=== PATIENT | male | born 1925 | race Caucasian/White ===

== ENCOUNTER 2017-05-30 14:50 | Emergency (ER) | payer OTHER ==
--- OUTSIDE RECORDS SUMMARY | 2017-05-30 14:53 | XMS REPORT ---
:1925 [facility] Address [address] [place] [id number] Care Team Providers Name Role Phone DESIREE VAUGHAN Unavailable Unavailable Problems This patient has no known problems. Allergies, Adverse Reactions, Alerts This patient has no known allergies or adverse reactions. Medications This patient has no known medications. Results Test Description Test Time Test Comments Text Results Atomic Results Result Comments ROSA SOUSA, 2017-05-26 What level(s) should be FINAL REPORT PATIENT LUMBAR, INITIAL 21:29:00 performed->[id number] for ID: [id number] exam:->mod to high grade HISTORY: L3 compression fx L3 vertebral wedged compression fracture and severe lower back pain despite conservative therapy. PROCEDURE: Following informed written consent, general anesthesia was performed by the anesthesiology service and the patient was placed in a prone position on the angiographic table. The lower back was prepped and draped in the usual sterile manner. 2% lidocaine was given locally for anesthesia. Using a right L3 pedicular approach and fluoroscopic guidance, the access needle was placed into the L3 vertebral body. A tract was drilled through each cannula into the L3 vertebral body. Vertebral augmentation balloon was placed through the access cannula and inflated. The balloon was deflated and removed. Next a curved needle was placed through the access needle into created channel to the contralateral side. A total of 6 mL of methyl methacrylate was infused into the three vertebral body under constant fluoroscopic visualization. The cannula was then removed and the access sites closed with Steri-Strips. Sterile bandages were applied and the patient was transferred from the department in stable condition. There were no immediate complications. FINDINGS: Images obtained during the procedure show the access needle, cannula and 11 in expected positions within the three vertebral body. Following methacrylate infusion, adequate distribution is seen within the L3 vertebral body with minimal extravasation into the L3-L4 disc space. IMPRESSION: 1. Technically successful L3 percutaneous vertebral augmentation. No immediate complications. Total fluoroscopy time: 5.9 minsReference Air Kerma: 225 mGy Signed: Brian Hernandezeport Verified Date/Time: 05/26/2017 21:29:09 Reading Location: [facility] P048 Angio Body Reading Room ESIUM 2017-05-26 09:10:00 Test Item Value Reference Range Comments MAGNESIUM (BEAKER) (test jllb=149) 1.9 mg/dL 1.6-2.6 BASIC METABOLIC [id number] 09:10:00 Test Item Value Reference Range Comments SODIUM (BEAKER) (test 141 meq/L 136-145 kfrh=697) POTASSIUM (BEAKER) (test 4.1 meq/L 3.5-5.1 hawv=233) CHLORIDE (BEAKER) (test 107 meq/L 98-107 bprw=161) CO2 (BEAKER) (test 25 meq/L 22-29 lami=262) BLOOD UREA NITROGEN 49 mg/dL 7-21 (BEAKER) (test xchj=285) CREATININE (BEAKER) (test 1.36 mg/dL 0.57-1.25 ebes=094) GLUCOSE RANDOM (BEAKER) 114 mg/dL 70-105 (test fffj=942) CALCIUM (BEAKER) (test 9.3 mg/dL 8.4-10.2 bsmz=691) EGFR (BEAKER) (test 49 mL/min/1.73 sq m ESTIMATED GFR IS NOT ggsd=2660) ACCURATE CREATININE CLEARANCE IN PREDICTING GLOMERULAR FILTRATION RATE. ESTIMATED GFR IS NOT APPLICABLE FOR DIALYSIS PATIENTS. [id number] 06:12:00 Test Item Value Reference Range Comments PARTIAL THROMBOPLASTIN TIME (BEAKER) (test 29.2 seconds 22.5-36.0 ffkx=567) PROTHROMBIN TIME/[id number] 06:11:00 Test Item Value Reference Range Comments PROTIME (BEAKER) (test pggq=593) 14.2 seconds 11.7-14.7 INR (BEAKER) (test qbzi=791) 1.1 <=5.9 RECOMMENDED COUMADIN/WARFARIN INR THERAPY RANGESSTANDARD DOSE: 2.0 - 3.0 Includes: PROPHYLAXIS forvenous thrombosis, systemic embolization; TREATMENT for venous thrombosis and/or pulmonary embolus.HIGH RISK: Target INR is 2.5-3.5 for patients with mechanical heart valves.CBC W/PLT COUNT & AUTO [id number] 06:05:00 Test Item Value Reference Range Comments WHITE BLOOD CELL COUNT (BEAKER) (test puwi=398) 6.1 K/ L 3.5-10.5 RED BLOOD CELL COUNT (BEAKER) (test vkuv=874) 3.46 M/ L 4.63-6.08 HEMOGLOBIN (BEAKER) (test mmab=228) 11.0 GM/DL 13.7-17.5 HEMATOCRIT (BEAKER) (test hujq=446) 34.3 % 40.1-51.0 MEAN CORPUSCULAR VOLUME (BEAKER) (test beyv=860) 99.1 fL 79.0-92.2 MEAN CORPUSCULAR HEMOGLOBIN (BEAKER) (test 31.8 pg 25.7-32.2 tqvf=324) MEAN CORPUSCULAR HEMOGLOBIN CONC (BEAKER) (test 32.1 GM/DL 32.3-36.5 gsoh=305) RED CELL DISTRIBUTION WIDTH (BEAKER) (test 14.0 % 11.6-14.4 kvtb=693) PLATELET COUNT (BEAKER) (test avzi=887) 255 K/CU MM 150-450 MEAN PLATELET VOLUME (BEAKER) (test dqcf=978) 9.8 fL 9.4-12.4 NUCLEATED RED BLOOD CELLS (BEAKER) (test 0 /100 WBC 0-0 qymx=554) NEUTROPHILS RELATIVE PERCENT (BEAKER) (test 71 % dhby=256) LYMPHOCYTES RELATIVE PERCENT (BEAKER) (test 19 % iidn=898) MONOCYTES RELATIVE PERCENT (BEAKER) (test 8 % rtif=752) EOSINOPHILS RELATIVE PERCENT (BEAKER) (test 1 % frav=575) BASOPHILS RELATIVE PERCENT (BEAKER) (test 0 % kckq=480) NEUTROPHILS ABSOLUTE COUNT (BEAKER) (test 4.36 K/ L 1.78-5.38 pvco=374) LYMPHOCYTES ABSOLUTE COUNT (BEAKER) (test 1.18 K/ L 1.32-3.57 losi=131) MONOCYTES ABSOLUTE COUNT (BEAKER) (test 0.48 K/ L 0.30-0.82 gtys=117) EOSINOPHILS ABSOLUTE COUNT (BEAKER) (test 0.07 K/ L 0.04-0.54 caie=150) BASOPHILS ABSOLUTE COUNT (BEAKER) (test 0.01 K/ L 0.01-0.08 bhwi=871) IMMATURE GRANULOCYTES-RELATIVE PERCENT (BEAKER) 0 % 0-1 (test tnyn=4883) MR, SPINE, LUMBAR, WITHOUT [id number] 14:01:00FINAL REPORT MRI lumbar spine without contrast 05/25/2017 at 1223. CLINICAL HISTORY : Compression fracture. TECHNIQUE: MRI of the lumbar spine was performed, utilizing the following sequences: Sagittal T1, T2, STIR; axial T1 and T2. COMPARISON: CT lumbar spine 05/23/2017. FINDINGS:There is a recent on chronic L3 compression fracture resulting in 67% loss of vertebral body height and mild osseous retropulsion. The remaining vertebral bodies are intact. There is double curvature arcuate and rotatory scoliosis, apex left at L1-2 and apex right at L2-3. There is degeneration mediated shallow grade 1 anterolisthesis of L4 on L5, with compensatory degeneration mediated retrolisthesis of L1 on L2. There are Modic degenerative endplate changes and marrow edema in the inferior L1 andsuperior L2 vertebral body endplates. Bone marrow signal intensity is otherwise unremarkable. The conus medullaris terminates at the L1- 2 intervertebral disc. The distal spinal cord and terminal nerve roots are unremarkable. 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 At L5-S1, facet joint arthropathy contributes to mild right foraminal stenosis. There are bilateral facet joint effusions. At L4-5, anterolisthesis, dorsal disc bulge, facet joint arthropathy, and posterior ligamentous thickening contribute to moderate central canal stenosis, with mild right andmoderate left foraminal stenosis. There are bilateral facet joint effusions. At L3-4, osseous retropulsion, dorsal disc bulge, facet joint arthropathy, and posterior ligamentous thickening contribute to moderate bilateral foraminal stenosis, with moderate central canal stenosis. There are bilateral facet joint effusions. At L2-3, dorsal disc bulge, a superimposed left subarticular/foraminal disc protrusion, facet joint arthropathy, and posterior ligamentous thickening contribute to moderate central canal stenosis, with moderate bilateral foraminal stenosis. There are bilateral facet joint effusions. At L1-2, retrolisthesis, dorsal disc bulge and facet joint arthropathy contribute to mild central canal stenosis and moderate right foraminal stenosis. There is a 17 mm noncystic lesion in the superior right kidney. There are gallstones measuring up to 15 mm in diameter in the dependent gallbladder.There is colonic diverticulosis. The paraspinal musculature is intact. IMPRESSION:1. Chronic severe L3 compression fracture contribute to moderate central canal stenosis.2. Noncystic right renal lesion, for which further evaluation with CT versus MRI, renal mass protocol, is recommended.3. Additional chronic appearing findings as discussed. Signed: Albert Gonzalez MDReport Verified Date/Time: 05/25/2017 14:01:36 Reading Location: [facility] Radiology Reading Room [id number] 06:33:00 Test Item Value Reference Range Comments MAGNESIUM (BEAKER) (test nmuj=987) 1.8 mg/dL 1.6-2.6 BASIC METABOLIC [id number] 06:33:00 Test Item Value Reference Range Comments SODIUM (BEAKER) (test 142 meq/L 136-145 mtsi=878) POTASSIUM (BEAKER) (test 4.3 meq/L 3.5-5.1 bcwl=956) CHLORIDE (BEAKER) (test 107 meq/L 98-107 bptv=381) CO2 (BEAKER) (test 25 meq/L 22-29 xrvy=583) BLOOD UREA NITROGEN 52 mg/dL 7-21 (BEAKER) (test awov=156) CREATININE (BEAKER) (test 1.48 mg/dL 0.57-1.25 layv=550) GLUCOSE RANDOM (BEAKER) 100 mg/dL 70-105 (test kgws=445) CALCIUM (BEAKER) (test 9.5 mg/dL 8.4-10.2 tpui=101) EGFR (BEAKER) (test 45 mL/min/1.73 sq m ESTIMATED GFR IS NOT dxss=4616) ACCURATE CREATININE CLEARANCE IN PREDICTING GLOMERULAR FILTRATION RATE. ESTIMATED GFR IS NOT APPLICABLE FOR DIALYSIS PATIENTS. CBC W/PLT COUNT & AUTO [id number] 05:30:00 Test Item Value Reference Range Comments WHITE BLOOD CELL COUNT (BEAKER) (test nvlv=605) 7.1 K/ L 3.5-10.5 RED BLOOD CELL COUNT (BEAKER) (test kddq=947) 3.24 M/ L 4.63-6.08 HEMOGLOBIN (BEAKER) (test ogbv=823) 10.3 GM/DL 13.7-17.5 HEMATOCRIT (BEAKER) (test zbyd=117) 32.0 % 40.1-51.0 MEAN CORPUSCULAR VOLUME (BEAKER) (test jvzv=213) 98.8 fL 79.0-92.2 MEAN CORPUSCULAR HEMOGLOBIN (BEAKER) (test 31.8 pg 25.7-32.2 orri=844) MEAN CORPUSCULAR HEMOGLOBIN CONC (BEAKER) (test 32.2 GM/DL 32.3-36.5 vsxp=536) RED CELL DISTRIBUTION WIDTH (BEAKER) (test 14.0 % 11.6-14.4 igmd=413) PLATELET COUNT (BEAKER) (test xfyl=075) 235 K/CU MM 150-450 MEAN PLATELET VOLUME (BEAKER) (test dezk=145) 10.0 fL 9.4-12.4 NUCLEATED RED BLOOD CELLS (BEAKER) (test 0 /100 WBC 0-0 acta=248) NEUTROPHILS RELATIVE PERCENT (BEAKER) (test 72 % znta=634) LYMPHOCYTES RELATIVE PERCENT (BEAKER) (test 18 % fjmk=061) MONOCYTES RELATIVE PERCENT (BEAKER) (test 8 % nbmr=210) EOSINOPHILS RELATIVE PERCENT (BEAKER) (test 1 % spcb=048) BASOPHILS RELATIVE PERCENT (BEAKER) (test 0 % ccqp=334) NEUTROPHILS ABSOLUTE COUNT (BEAKER) (test 5.17 K/ L 1.78-5.38 tmqs=029) LYMPHOCYTES ABSOLUTE COUNT (BEAKER) (test 1.26 K/ L 1.32-3.57 lzcc=804) MONOCYTES ABSOLUTE COUNT (BEAKER) (test 0.59 K/ L 0.30-0.82 lbqd=200) EOSINOPHILS ABSOLUTE COUNT (BEAKER) (test 0.07 K/ L 0.04-0.54 qkpt=030) BASOPHILS ABSOLUTE COUNT (BEAKER) (test 0.02 K/ L 0.01-0.08 ochr=111) IMMATURE GRANULOCYTES-RELATIVE PERCENT (BEAKER) 0 % 0-1 (test cqti=9206) [id number] 04:46:00 Test Item Value Reference Range Comments MAGNESIUM (BEAKER) (test zwzh=401) 1.8 mg/dL 1.6-2.6 BASIC METABOLIC [id number] 04:46:00 Test Item Value Reference Range Comments SODIUM (BEAKER) (test 141 meq/L 136-145 ozgw=964) POTASSIUM (BEAKER) (test 4.8 meq/L 3.5-5.1 taus=826) CHLORIDE (BEAKER) (test 109 meq/L 98-107 dwyk=985) CO2 (BEAKER) (test 21 meq/L 22-29 rfmw=825) BLOOD UREA NITROGEN 50 mg/dL 7-21 (BEAKER) (test yjvp=579) CREATININE (BEAKER) (test 1.54 mg/dL 0.57-1.25 crad=575) GLUCOSE RANDOM (BEAKER) 122 mg/dL 70-105 (test oxzv=824) CALCIUM (BEAKER) (test 9.3 mg/dL 8.4-10.2 hvql=422) EGFR (BEAKER) (test 43 mL/min/1.73 sq m ESTIMATED GFR IS NOT peew=0518) ACCURATE CREATININE CLEARANCE IN PREDICTING GLOMERULAR FILTRATION RATE. ESTIMATED GFR IS NOT APPLICABLE FOR DIALYSIS PATIENTS. CBC W/PLT COUNT & AUTO [id number] 04:18:00 Test Item Value Reference Range Comments WHITE BLOOD CELL COUNT (BEAKER) (test sqca=196) 6.7 K/ L 3.5-10.5 RED BLOOD CELL COUNT (BEAKER) (test kthe=647) 3.22 M/ L 4.63-6.08 HEMOGLOBIN (BEAKER) (test absc=739) 10.5 GM/DL 13.7-17.5 HEMATOCRIT (BEAKER) (test xdyr=000) 31.8 % 40.1-51.0 MEAN CORPUSCULAR VOLUME (BEAKER) (test pldk=394) 98.8 fL 79.0-92.2 MEAN CORPUSCULAR HEMOGLOBIN (BEAKER) (test 32.6 pg 25.7-32.2 tcza=592) MEAN CORPUSCULAR HEMOGLOBIN CONC (BEAKER) (test 33.0 GM/DL 32.3-36.5 qzhd=787) RED CELL DISTRIBUTION WIDTH (BEAKER) (test 13.7 % 11.6-14.4 oqwh=010) PLATELET COUNT (BEAKER) (test fdam=385) 234 K/CU MM 150-450 MEAN PLATELET VOLUME (BEAKER) (test uxhy=197) 9.3 fL 9.4-12.4 NUCLEATED RED BLOOD CELLS (BEAKER) (test 0 /100 WBC 0-0 lqem=878) NEUTROPHILS RELATIVE PERCENT (BEAKER) (test 81 % vkgs=069) LYMPHOCYTES RELATIVE PERCENT (BEAKER) (test 12 % jnur=913) MONOCYTES RELATIVE PERCENT (BEAKER) (test 7 % oslj=145) EOSINOPHILS RELATIVE PERCENT (BEAKER) (test 0 % xlte=020) BASOPHILS RELATIVE PERCENT (BEAKER) (test 0 % cfii=986) NEUTROPHILS ABSOLUTE COUNT (BEAKER) (test 5.39 K/ L 1.78-5.38 bjcp=826) LYMPHOCYTES ABSOLUTE COUNT (BEAKER) (test 0.80 K/ L 1.32-3.57 wpud=801) MONOCYTES ABSOLUTE COUNT (BEAKER) (test 0.46 K/ L 0.30-0.82 lyfg=942) EOSINOPHILS ABSOLUTE COUNT (BEAKER) (test 0.00 K/ L 0.04-0.54 qgdk=703) BASOPHILS ABSOLUTE COUNT (BEAKER) (test 0.01 K/ L 0.01-0.08 rnmg=443) IMMATURE GRANULOCYTES-RELATIVE PERCENT (BEAKER) 0 % 0-1 (test clej=7904) COMPREHENSIVE METABOLIC [id number] 18:24:00 Test Item Value Reference Range Comments TOTAL PROTEIN (BEAKER) 7.7 gm/dL 6.0-8.3 (test evvq=649) ALBUMIN (BEAKER) (test 4.0 g/dL 3.5-5.0 lrvf=5973) ALKALINE PHOSPHATASE 110 U/L 40-150 (BEAKER) (test yupz=910) BILIRUBIN TOTAL (BEAKER) 0.4 mg/dL 0.2-1.2 (test pvip=259) SODIUM (BEAKER) (test 144 meq/L 136-145 ozee=807) POTASSIUM (BEAKER) (test 4.9 meq/L 3.5-5.1 jbtb=455) CHLORIDE (BEAKER) (test 107 meq/L 98-107 zfey=859) CO2 (BEAKER) (test 16 meq/L 22-29 fjpa=080) BLOOD UREA NITROGEN 44 mg/dL 7-21 (BEAKER) (test xzqe=219) CREATININE (BEAKER) (test 1.56 mg/dL 0.57-1.25 mfgw=132) GLUCOSE RANDOM (BEAKER) 154 mg/dL 70-105 (test sgxg=093) CALCIUM (BEAKER) (test 10.3 mg/dL 8.4-10.2 pdwp=676) AST (SGOT) (BEAKER) (test 30 U/L 5-34 pxss=498) ALT (SGPT) (BEAKER) (test 17 U/L 6-55 lqfr=830) EGFR (BEAKER) (test 42 mL/min/1.73 sq m ESTIMATED GFR IS NOT ebpi=4891) ACCURATE CREATININE CLEARANCE IN PREDICTING GLOMERULAR FILTRATION RATE. ESTIMATED GFR IS NOT APPLICABLE FOR DIALYSIS PATIENTS. CBC W/PLT COUNT & AUTO [id number] 18:04:00 Test Item Value Reference Range Comments WHITE BLOOD CELL COUNT (BEAKER) (test fozj=148) 6.8 K/ L 3.5-10.5 RED BLOOD CELL COUNT (BEAKER) (test rusg=361) 3.72 M/ L 4.63-6.08 HEMOGLOBIN (BEAKER) (test zyvq=799) 12.0 GM/DL 13.7-17.5 HEMATOCRIT (BEAKER) (test fkuh=872) 37.8 % 40.1-51.0 MEAN CORPUSCULAR VOLUME (BEAKER) (test mxeh=587) 101.6 fL 79.0-92.2 MEAN CORPUSCULAR HEMOGLOBIN (BEAKER) (test 32.3 pg 25.7-32.2 tppo=327) MEAN CORPUSCULAR HEMOGLOBIN CONC (BEAKER) (test 31.7 GM/DL 32.3-36.5 jieo=698) RED CELL DISTRIBUTION WIDTH (BEAKER) (test 13.8 % 11.6-14.4 jnyd=666) PLATELET COUNT (BEAKER) (test jmvx=228) 222 K/CU MM 150-450 MEAN PLATELET VOLUME (BEAKER) (test usks=524) 9.5 fL 9.4-12.4 NUCLEATED RED BLOOD CELLS (BEAKER) (test 0 /100 WBC 0-0 emwu=043) NEUTROPHILS RELATIVE PERCENT (BEAKER) (test 93 % vlgv=508) LYMPHOCYTES RELATIVE PERCENT (BEAKER) (test 6 % tkkz=284) MONOCYTES RELATIVE PERCENT (BEAKER) (test 1 % tdfh=642) EOSINOPHILS RELATIVE PERCENT (BEAKER) (test 0 % njws=882) BASOPHILS RELATIVE PERCENT (BEAKER) (test 0 % pnny=341) NEUTROPHILS ABSOLUTE COUNT (BEAKER) (test 6.33 K/ L 1.78-5.38 qlhi=790) LYMPHOCYTES ABSOLUTE COUNT (BEAKER) (test 0.38 K/ L 1.32-3.57 cchf=544) MONOCYTES ABSOLUTE COUNT (BEAKER) (test 0.08 K/ L 0.30-0.82 mhsx=120) EOSINOPHILS ABSOLUTE COUNT (BEAKER) (test 0.00 K/ L 0.04-0.54 dwxq=219) BASOPHILS ABSOLUTE COUNT (BEAKER) (test 0.01 K/ L 0.01-0.08 ketj=579) IMMATURE GRANULOCYTES-RELATIVE PERCENT (BEAKER) 0 % 0-1 (test qvbo=0178)
--- NOTE | 2017-05-30 16:44 | ER ---
Nurse's Notes [facility] Name: Donald Tom Age: 89 yrs Sex: Male : 1925 Arrival Date: 05/30/2017 Time: 14:55 Bed 19 Private MD: Diagnosis: Constipation Presentation: 05/30 15:07 Presenting complaint: Patient states: Left sided abdominal pain and constipation x 1 hb week. Had back surgery last , hernia repair 3 weeks ago. Transition of care: patient was not received from another setting of care. Onset of symptoms is unknown. Care prior to arrival: None. 15:07 Method Of Arrival: Wheelchair hb 15:07 Acuity: MARIANELA 3 hb Historical: - Allergies: 15:10 Levaquin; hb - Home Meds: 15:10 lisinopril 10 mg Oral tab 1 tab once daily [Active]; hb 15:15 amlodipine oral [Active]; atorvastatin oral oral [Active]; Sulfamylon Topical [Active]; rb1 cholecalciferol (vitamin D3) oral oral [Active]; Omeprazole Oral [Active]; bimatoprost ophthalmic ophthalmic [Active]; - PMHx: 15:10 Hypertension; CKD; hb - PSHx: 15:10 Hernia repair; Back; hb - Immunization history:: Adult Immunizations up to date. - Social history:: Smoking status: Patient/guardian denies using tobacco. Screenin:15 Abuse screen: Denies threats or abuse. Nutritional screening: No deficits noted. rb1 Tuberculosis screening: No symptoms or risk factors identified. Fall Risk None identified. Assessment: 15:15 General: Appears in no apparent distress. comfortable, slender, Behavior is calm, rb1 cooperative, Denies fever. Pain: Complains of pain in left low back Pain currently is 6 out of 10 on a pain scale. Neuro: Level of Consciousness is awake, alert, obeys commands, Oriented to person, place, time, situation. Cardiovascular: Capillary refill < 3 seconds is brisk in bilateral fingers. Respiratory: Airway is patent Respiratory effort is even, unlabored, Respiratory pattern is regular, symmetrical. GI: Abdomen is flat, Bowel sounds present X 4 quads. Abd is non tender Reports constipation. : No signs and/or symptoms were reported regarding the genitourinary system. Derm: Skin is pink, warm \\T\\ dry. Musculoskeletal: Range of motion: intact in all extremities. 15:15 General: pt. stated, "I came in last week for pain and found out that I had a rb1 compression fracture. I had that repaired on , they injected cement in it. I have been taking Tylenol 3 and I haven't been able to go to the bathroom for about a week.". 15:58 Reassessment: pt. is in x-ray. rb1 16:22 Reassessment: Patient appears in no apparent distress at this time. Patient and/or rb1 family updated on plan of care and expected duration. Pain level reassessed. Patient is alert, oriented x 3, equal unlabored respirations, skin warm/dry/pink. Vital Signs: 15:10 BP 97 / 60; Pulse 110; Resp 18; Temp 97.1; Pulse Ox 94% on R/A; Weight 54.43 kg; Height hb 5 ft. 7 in. (170.18 cm); Pain 5/10; 15:59 rb1 16:22 BP 121 / 63; Pulse 106; Resp 17; Pulse Ox 99% on R/A; rb1 17:00 BP 146 / 69; Pulse 95; Resp 19; Pulse Ox 98% on R/A; rb1 15:10 Body Mass Index 18.79 (54.43 kg, 170.18 cm) hb 15:59 [facility] Course: 14:55 Patient arrived in ED. mr 15:09 Triage completed. hb 15:10 Arm band placed on left wrist. hb 15:11 Ravindra Castillo PA is PHCP. jr8 15:11 Herbie Huang MD is Attending Physician. jr8 15:15 Patient has correct armband on for positive identification. Bed in low position. Call rb1 light in reach. Side rails up X 1. Pulse ox on. NIBP on. 15:21 Melissa Quintana, JULIETA is Primary Nurse. rb1 16:43 Joe Gutierres MD is Referral Physician. jr8 17:00 No provider procedures requiring assistance completed. Patient did not have IV access rb1 during this emergency room visit. Administered Medications: No medications were administered Outcome: 16:44 Discharge ordered by . [facility] 17:00 Discharged to home via wheelchair, with family. rb1 17:00 Condition: stable 17:00 Discharge instructions given to patient, Instructed on discharge instructions, follow up and referral plans. medication usage, Demonstrated understanding of instructions, follow-up care, medications, Prescriptions given X 1. 17:00 Patient left the ED. rb1 Signatures: Rodney Nayla iRvaskarlywilfridRavindra PA PA jr8 Melissa Quintana, RN RN rb1 Neeta Vickers RN RN hb Corrections: (The following items were deleted from the chart) 17:08 17:07 BP 146 / 69; Pulse 95bpm; Resp 19bpm; Pulse Ox 98% RA; rb1 rb1 17:10 17:09 Patient left the ED. rb1 rb1
--- NOTE | 2017-05-30 16:44 | EDPHYS ---
Physician Documentation [facility] Name: Donald Tom Age: 89 yrs Sex: Male : 1925 Arrival Date: 05/30/2017 Time: 14:55 Bed 19 Private MD: ED Physician Herbie Huang HPI: 05/30 15:31 This 89 yrs old Male presents to ER via Wheelchair with complaints of jr8 Constipation. 15:31 The patient presents with constipation . Onset: The symptoms/episode began/occurred jr8 gradually, 1 week(s) ago. The symptoms do not radiate. Associated signs and symptoms: none. Modifying factors: The symptoms are alleviated by nothing, the symptoms are aggravated by nothing. The patient has not experienced similar symptoms in the past. The patient has been recently seen by a physician:. . 16:11 Patient stated that he had undergone a kyphoplasty last week. Has been on pain medicine jr8 since then. Stated that he has not had a bowel movement in one week. Denies abdominal pain. Complains of continued on/off back pain as well . Historical: - Allergies: 15:10 Levaquin; hb - Home Meds: 15:10 lisinopril 10 mg Oral tab 1 tab once daily [Active]; hb 15:15 amlodipine oral [Active]; atorvastatin oral oral [Active]; Sulfamylon Topical [Active]; rb1 cholecalciferol (vitamin D3) oral oral [Active]; Omeprazole Oral [Active]; bimatoprost ophthalmic ophthalmic [Active]; - PMHx: 15:10 Hypertension; CKD; hb - PSHx: 15:10 Hernia repair; Back; hb - Immunization history:: Adult Immunizations up to date. - Social history:: Smoking status: Patient/guardian denies using tobacco. ROS: 16:11 Eyes: Negative for injury, pain, redness, and discharge, ENT: Negative for injury, jr8 pain, and discharge, Neck: Negative for injury, pain, and swelling, Cardiovascular: Negative for chest pain, palpitations, and edema, Respiratory: Negative for shortness of breath, cough, wheezing, and pleuritic chest pain, MS/Extremity: Negative for injury and deformity, Skin: Negative for injury, rash, and discoloration, Neuro: Negative for headache, weakness, numbness, tingling, and seizure. 16:11 Abdomen/GI: Positive for constipation, Negative for abdominal pain, nausea, vomiting, diarrhea, abdominal distension, anorexia, dysphagia, hematemesis, black/tarry stool, rectal pain, rectal bleeding, bowel incontinence, flatulence. 16:11 Back: Positive for pain at rest, pain with movement, radiated pain. Exam: 16:11 Head/Face: Normocephalic, atraumatic. Eyes: Pupils equal round and reactive to light, jr8 extra-ocular motions intact. Lids and lashes normal. Conjunctiva and sclera are non-icteric and not injected. Cornea within normal limits. Periorbital areas with no swelling, redness, or edema. ENT: Nares patent. No nasal discharge, no septal abnormalities noted. Tympanic membranes are normal and external auditory canals are clear. Oropharynx with no redness, swelling, or masses, exudates, or evidence of obstruction, uvula midline. Mucous membranes moist. Neck: Trachea midline, no thyromegaly or masses palpated, and no cervical lymphadenopathy. Supple, full range of motion without nuchal rigidity, or vertebral point tenderness. No Meningismus. Cardiovascular: Regular rate and rhythm with a normal S1 and S2. No gallops, murmurs, or rubs. Normal PMI, no JVD. No pulse deficits. Respiratory: Lungs have equal breath sounds bilaterally, clear to auscultation and percussion. No rales, rhonchi or wheezes noted. No increased work of breathing, no retractions or nasal flaring. Skin: Warm, dry with normal turgor. Normal color with no rashes, no lesions, and no evidence of cellulitis. MS/ Extremity: Pulses equal, no cyanosis. Neurovascular intact. Full, normal range of motion. Neuro: Awake and alert, GCS 15, oriented to person, place, time, and situation. Cranial nerves II-XII grossly intact. Motor strength 5/5 in all extremities. Sensory grossly intact. Cerebellar exam normal. Normal gait. 16:11 Abdomen/GI: Inspection: abdomen appears normal, Bowel sounds: active, all quadrants, Palpation: abdomen is soft and non-tender, in all quadrants, mass, is not appreciated, rebound tenderness, is not appreciated, voluntary guarding, is not appreciated, involuntary guarding, is not appreciated, no appreciated organomegaly, Indicators: McBurney's point is not tender, Anthony's sign is negative, Rovsing's sign is negative, Liver: no appreciated palpable abnormalities, tenderness, is not appreciated. 16:11 Back: pain, that is mild, of the left low back, ROM is painful, normal spinal alignment noted, CVA tenderness, is absent, vertebral tenderness, is not appreciated. Vital Signs: 15:10 BP 97 / 60; Pulse 110; Resp 18; Temp 97.1; Pulse Ox 94% on R/A; Weight 54.43 kg; Height hb 5 ft. 7 in. (170.18 cm); Pain 5/10; 15:59 rb1 16:22 BP 121 / 63; Pulse 106; Resp 17; Pulse Ox 99% on R/A; rb1 17:00 BP 146 / 69; Pulse 95; Resp 19; Pulse Ox 98% on R/A; rb1 15:10 Body Mass Index 18.79 (54.43 kg, 170.18 cm) hb 15:59 pt. is in x-ray rb1 MDM: 15:11 Patient medically screened. jr8 16:34 Data reviewed: vital signs, nurses notes, radiologic studies, plain films, and as a jr8 result, I will discharge patient. Data interpreted: Pulse oximetry: on room air is 94 %. Interpretation: normal. Counseling: I had a detailed discussion with the patient and/or guardian regarding: the historical points, exam findings, and any diagnostic results supporting the discharge/admit diagnosis, radiology results, the need for outpatient follow up, a family practitioner, to return to the emergency department if symptoms worsen or persist or if there are any questions or concerns that arise at home. ED course: Detailed discussion with patient about needing to stop pain medicine if at all possible. To increase water. Will at Miralax. Regular Tylenol only for pain. Utilize heating pad as well. If he were to have abdominal pain, vomiting, fevers, bleeding from rectum to come back to be reevaluated. Otherwise to follow up with PCP . 05/30 15:30 Order name: ELENA KUB jr8 05/30 15:30 Order name: ELENA Lumbar Spine (3 Views) jr8 Administered Medications: No medications were administered Disposition: 18:39 Co-signature as Attending Physician, Herbie Huang MD. rn Disposition: 05/30/17 16:44 Discharged to Home. Impression: Constipation. - Condition is Stable. - Discharge Instructions: Constipation, Adult. - Prescriptions for Miralax 17 gram/dose Oral - take 1 packet by ORAL route once daily dilute powder in 8 ounces of water or juice; 1 box. - Medication Reconciliation Form, Thank You Letter, Antibiotic Education, Prescription Opioid Use form. - Follow up: Joe Gutierres MD; When: 5 - 6 days; Reason: Recheck today's complaints, Continuance of care, Re-evaluation by your physician. - Problem is new. - Symptoms have improved. - Notes: Regular Tylenol only for pain Heating pad as needed as well Push fluids Signatures: Dispatcher [employer] EDMS Herbie Huang MD MD rn Roszak, Josh, PA PA jr8 Melissa Quintana, RN RN rb1 Neeta Vickers RN RN
--- NOTE | 2017-05-30 17:43 | RAD REPORT ---
EXAM DESCRIPTION: RAD - Lumbar Spine 3 Views - 05/30/2017 4:13 pm CLINICAL HISTORY: Back pain FINDINGS: The alignment of the lumbar spine is satisfactory. Cement has been placed into an old L3 fracture. No acute fracture is seen. Mild spondylosis involves the lumbar spine.The bones are osteoporotic Mild scoliosis involves the thoracolumbar spine
--- NOTE | 2017-05-30 17:44 | RAD REPORT ---
EXAM DESCRIPTION: RAD - Abdomen 1 View (KUB) - 05/30/2017 4:13 pm CLINICAL HISTORY: Abdomen pain. FINDINGS: The bowel gas pattern is unremarkable. A moderate to large amount of stool is present throughout the colon. Vascular calcifications are present
== END 2017-05-30 17:09 | disposition home or self-care (01) ==
LOC: ER 14:50
DX: K59.00 Constipation, unspecified (principal); I12.9 Hypertensive chronic kidney disease with stage 1 through stage 4 chronic kidney disease, or unspecified chronic kidney disease; N18.9 Chronic kidney disease, unspecified; Z88.1 Allergy status to other antibiotic agents
CPT/HCPCS: 72100; 74018; 99283